=== PATIENT | female | born 1945 | race Asian ===

== ENCOUNTER 2016-10-27 23:20 | Inpatient (IN) | payer MEDICARE, OTHER ==
[~2016-10-27] VITALS: Ht 170.2 cm; Wt 101.5 kg
[~2016-10-27 23:20] MED LIST: [UNRECOGNIZED DRUG - CODE]; [UNRECOGNIZED DRUG - REMARK]; [UNRECOGNIZED DRUG - REMARK] PO; [UNRECOGNIZED DRUG - REMARK] PO
[2016-10-28] VITALS (20 sets, daily range): BP systolic 82–130; BP diastolic 42–66
[2016-10-28] MEDS ORDERED: SODIUM CHLORIDE FLUSH 10ML SYR IVF ONE
[2016-10-28] MEDS ORDERED: ONDANSETRON 2MG/ML, 2ML IVPush ONE
[2016-10-28] MEDS ORDERED: SODIUM CHLORIDE 0.9% 1,000ML IVBOLUS ONE
[2016-10-28 00:12] LABS: HEMOGLOBIN 4.5 g/dL (11.7-16.4)
[2016-10-28 00:13] LABS: HEMATOCRIT 14.7 % (34.6-47.8)
[2016-10-28 00:18] LABS: ASPARTATE AMINO TRANSFERASE 16 U/L (15-37); BLOOD UREA NITROGEN 23 mg/dL (7-18)
[2016-10-28] MEDS: SODIUM CHLORIDE 0.9% 1,000 ML IV SCH ×2 (00:30→05:37)
[2016-10-28] MEDS ORDERED: ACETAMINOPHEN 325 MG TABLET PO PRN (01:00)
[2016-10-28] MEDS ORDERED: ONDANSETRON 2MG/ML, 2ML IVPush PRN (01:00)
[2016-10-28] MEDS ORDERED: METOCLOPRAMIDE 5 MG/ML, 2ML IVPush PRN (01:00)
[2016-10-28] MEDS ORDERED: PHYTONADIONE 10 MG/ML, 1ML SQ ONE ×2 (01:00→03:00)
[2016-10-28] MEDS ORDERED: PROMETHAZINE 25 MG/ML, 1ML IM PRN (01:00)
[2016-10-28] MEDS ORDERED: WARF5TAB PO (01:08)
[2016-10-28] MEDS ORDERED: LOSA1TAB17 PO (01:08)
[2016-10-28 01:30] LABS: FERRITIN 17.2 ng/mL (8-252)
[2016-10-28] MEDS ORDERED: SODIUM CHLORIDE 0.9% 1,000 ML IV SCH (03:00)
[2016-10-28] MEDS ORDERED: PANTOPRAZOLE 80 MG in SODIUM CHLORIDE 0.9% 100 ML IV SCH (05:30)
[2016-10-28] MEDS ORDERED: PANTOPRAZOLE 80 MG in SODIUM CHLORIDE 0.9% 50 ML IV ONE (05:30)
[2016-10-28] MEDS ORDERED: FENTANYL PF 100 MCG/2ML ONE (11:41)
[2016-10-28] MEDS ORDERED: MIDAZOLAM 1 MG/ML, 5ML ONE (11:41)
[2016-10-28 11:58] LABS: WHITE BLOOD COUNT 6.7 x10^3/uL (3.4-10)
[2016-10-28 12:04] LABS: BLOOD UREA NITROGEN 28 mg/dL (7-18); HEMATOCRIT 15.7 % (34.6-47.8); HEMOGLOBIN 5.1 g/dL (11.7-16.4)
[2016-10-28 12:31] LABS: DIFF TOTAL CELLS COUNTED 100 CELL DIFF
[2016-10-28 12:38] LABS: VERIFY COUNTS? YES
[2016-10-28 12:58] LABS: ANISOCYTOSIS 1+; HYPOCHROMIA 2+
[2016-10-28 12:59] LABS: POIKILOCYTOSIS 1+
[2016-10-28] MEDS ORDERED: EPINEPHRINE SYRINGE 0.1 MG/ML, 10ML ONE (14:07)
[2016-10-28] MEDS: PANTOPRAZOLE 80 MG in SODIUM CHLORIDE 0.9% 100 ML IV SCH ×2 (14:36→22:59)
[2016-10-28 16:31] LABS: HEMATOCRIT 18.6 % (34.6-47.8); HEMOGLOBIN 6.1 g/dL (11.7-16.4)
[2016-10-28 23:23] LABS: HEMATOCRIT 25.7 % (34.6-47.8); HEMOGLOBIN 8.3 g/dL (11.7-16.4)
[2016-10-29] MEDS: SODIUM CHLORIDE 0.9% 1,000 ML IV SCH ×2 (01:23→14:47)
[2016-10-29 04:00] VITALS: BP 93/53
[2016-10-29 04:15] LABS: HEMATOCRIT 23.3 % (34.6-47.8); HEMOGLOBIN 7.9 g/dL (11.7-16.4); WHITE BLOOD COUNT 8.4 x10^3/uL (3.4-10)
[2016-10-29 04:27] LABS: ASPARTATE AMINO TRANSFERASE 28 U/L (15-37); BLOOD UREA NITROGEN 33 mg/dL (7-18)
[2016-10-29] MEDS: PANTOPRAZOLE 80 MG in SODIUM CHLORIDE 0.9% 100 ML IV SCH ×2 (07:56→20:43)
[2016-10-29 10:32] LABS: HEMATOCRIT 24.9 % (34.6-47.8); HEMOGLOBIN 8.2 g/dL (11.7-16.4)
[2016-10-29 14:43] LABS: HEMATOCRIT 23.1 % (34.6-47.8); HEMOGLOBIN 7.7 g/dL (11.7-16.4)
[2016-10-29] MEDS: D5%-0.45% NACL 1,000 ML IV SCH (18:02)
[2016-10-29 21:31] LABS: HEMATOCRIT 23.1 % (34.6-47.8); HEMOGLOBIN 7.6 g/dL (11.7-16.4)
[2016-10-30] MEDS: D5%-0.45% NACL 1,000 ML IV SCH ×2 (03:52→14:42)
[2016-10-30 04:33] LABS: HEMOGLOBIN 7.5 g/dL (11.7-16.4); WHITE BLOOD COUNT 7.1 x10^3/uL (3.4-10)
[2016-10-30 04:52] LABS: ASPARTATE AMINO TRANSFERASE 29 U/L (15-37); BLOOD UREA NITROGEN 33 mg/dL (7-18)
[2016-10-30 05:24] VITALS: BP 106/70
[2016-10-30] MEDS: PANTOPRAZOLE 80 MG in SODIUM CHLORIDE 0.9% 100 ML IV SCH ×2 (07:57→08:32)
[2016-10-30 14:09] LABS: HEMATOCRIT 25.6 % (34.6-47.8); HEMOGLOBIN 8.2 g/dL (11.7-16.4)
[2016-10-30] MEDS: PANTOPRAZOLE 40 MG IV IVPush SCH (14:41)
[2016-10-30 20:00] VITALS: BP 130/81
[2016-10-31] MEDS: PANTOPRAZOLE 40 MG IV IVPush SCH (01:47)
[2016-10-31] MEDS: D5%-0.45% NACL 1,000 ML IV SCH (01:47)
[2016-10-31 01:52] VITALS: BP 147/88
[2016-10-31 05:47] LABS: HEMATOCRIT 24.9 % (34.6-47.8); WHITE BLOOD COUNT 5.6 x10^3/uL (3.4-10)
[2016-10-31 06:10] LABS: ASPARTATE AMINO TRANSFERASE 26 U/L (15-37); BLOOD UREA NITROGEN 19 mg/dL (7-18)
[2016-10-31 07:31] VITALS: BP 153/87
[2016-10-31] MEDS ORDERED: OMEP40CA6 PO (11:40)
[2016-10-31 12:10] VITALS: BP 141/85
[2016-10-31] MEDS ORDERED: ONDANSETRON 2MG/ML, 2ML IVPush PRN (15:00)
[2016-10-31] MEDS ORDERED: PROMETHAZINE 25 MG/ML, 1ML IM PRN (15:00)
[2016-10-31] MEDS ORDERED: D5%-0.45% NACL 1,000 ML IV SCH (15:00)
[2016-10-31] MEDS ORDERED: ACETAMINOPHEN 325 MG TABLET PO PRN (15:00)
[2016-10-31] MEDS ORDERED: METOCLOPRAMIDE 5 MG/ML, 2ML IVPush PRN (15:00)
== END 2016-10-31 13:45 | disposition home or self-care (01) | DRG 377 ==
LOC: ED 10-28 00:29 → EDIP 10-28 00:44 → SUATTDRO 10-28 00:45 → CCU 10-28 01:57 → 4WST 10-30 20:04
PROVIDERS: ATTEND Family Medicine
PROC: 0T9B70Z Drainage of Bladder with Drainage Device, Via Natural or Artificial Opening (ICD-10-PCS; 2016-10-27)
PROC: 30233N1 Transfusion of Nonautologous Red Blood Cells into Peripheral Vein, Percutaneous Approach (ICD-10-PCS; 2016-10-28)
PROC: 30233K1 Transfusion of Nonautologous Frozen Plasma into Peripheral Vein, Percutaneous Approach (ICD-10-PCS; 2016-10-28)
PROC: 3E0G8GC Introduction of Other Therapeutic Substance into Upper GI, Via Natural or Artificial Opening Endoscopic (ICD-10-PCS; 2016-10-28)
PROC: 0W3P8ZZ Control Bleeding in Gastrointestinal Tract, Via Natural or Artificial Opening Endoscopic (ICD-10-PCS; 2016-10-28)
PROC: 0DB68ZX Excision of Stomach, Via Natural or Artificial Opening Endoscopic, Diagnostic (ICD-10-PCS; 2016-10-28)
PROC: 30233L1 Transfusion of Nonautologous Fresh Plasma into Peripheral Vein, Percutaneous Approach (ICD-10-PCS; principal; 2016-10-28 12:30)
DX: K26.4 Chronic or unspecified duodenal ulcer with hemorrhage (principal); E43 Unspecified severe protein-calorie malnutrition; N17.9 Acute kidney failure, unspecified; D68.59 Other primary thrombophilia; D68.32 Hemorrhagic disorder due to extrinsic circulating anticoagulants; I48.91 Unspecified atrial fibrillation; D62 Acute posthemorrhagic anemia; E78.5 Hyperlipidemia, unspecified; I10 Essential (primary) hypertension; T45.515A Adverse effect of anticoagulants, initial encounter; K29.50 Unspecified chronic gastritis without bleeding; Z79.01 Long term (current) use of anticoagulants; Y92.89 Other specified places as the place of occurrence of the external cause; Z79.82 Long term (current) use of aspirin; Z79.899 Other long term (current) drug therapy; Z68.35 Body mass index [BMI] 35.0-35.9, adult
CPT/HCPCS: 36415; 80048; 80053; 81001; 82728; 83540; 83550; 83605; 83690; 83735; 85014; 85018; 85025; 85610; 85730; 86850; 86900; 86923; 87081; 87086; 88305; 93005; J2250; J2405; J3010; J3430; C9113; J7030; P9016; P9017

== ENCOUNTER 2017-02-04 16:55 | Inpatient (IN) | payer MEDICARE ==
[~2017-02-04] VITALS: Ht 172.7 cm; Wt 86.4 kg
[~2017-02-04 16:55] MED LIST changes: +LOSA1TAB22 PO; +OMEP40CA6 PO; +WARF5TAB PO
[2017-02-04 18:03] LABS: HEMATOCRIT 35.7 % (34.6-47.8); HEMOGLOBIN 11.1 g/dL (11.7-16.4); WHITE BLOOD COUNT 5.3 x10^3/uL (3.4-10)
[2017-02-04 18:11] LABS: BLOOD UREA NITROGEN 22 mg/dL (7-18)
[2017-02-04] MEDS ORDERED: DILTIAZEM 5 MG/ML, 5ML ONE ×2 (18:14→18:17)
[2017-02-04 18:15] LABS: IS PT STATUS REG ER OR PRE ER? YES
[2017-02-04] MEDS ORDERED: ASPIRIN 81 MG TABLET CHEW ONE (18:15)
[2017-02-04] MEDS ORDERED: SODIUM CHLORIDE FLUSH 10ML SYR IVF ONE (18:30)
[2017-02-04 18:42] LABS: DIFF TOTAL CELLS COUNTED 100 CELL DIFF
[2017-02-04 18:47] LABS: ANISOCYTOSIS 2+; HYPOCHROMIA 1+; MICROCYTOSIS 2+; POLYCHROMASIA 1+
[2017-02-04 18:48] LABS: OVALOCYTES 1+; TARGET CELLS 1+
[2017-02-04 18:49] LABS: LARGE PLATELETS 1+
[2017-02-04 18:51] LABS: VERIFY COUNTS? YES
[2017-02-04] MEDS ORDERED: ASPIRIN 81 MG TABLET CHEW PO ONE (19:00)
[2017-02-04] MEDS ORDERED: DILTIAZEM 5 MG/ML, 5ML IV ONE (19:00)
[2017-02-04] MEDS ORDERED: OMNIPAQUE 350 MG/ML, 100ML BOTTLE ONE (19:49)
[2017-02-04] MEDS ORDERED: FUROSEMIDE 20 MG/2 ML IV ONE (20:30)
[2017-02-04] MEDS ORDERED: ONDANSETRON 2MG/ML, 2ML IV PRN (21:00)
[2017-02-04] MEDS ORDERED: ACETAMINOPHEN 650 MG/20.3 ML UDC PO PRN (21:00)
[2017-02-04] MEDS ORDERED: NITROGLYCERIN 0.4 MG BOTTLE (25 TABS) SL PRN (21:00)
[2017-02-04] MEDS ORDERED: Enoxaparin 1 mg/kg protocol SQ SCH (21:00)
[2017-02-04] MEDS ORDERED: FURO40TA6 PO (21:08)
[2017-02-04] MEDS ORDERED: METO25TA91 PO (21:08)
[2017-02-04 21:26] LABS: IS PT STATUS REG ER OR PRE ER? YES
[2017-02-04 22:20] VITALS: BP 134/84
[2017-02-04] MEDS: FUROSEMIDE 20 MG/2 ML IVPush SCH ×2 (22:50→22:58)
[2017-02-04] MEDS: SODIUM CHLORIDE FLUSH 10ML SYR IVF SCH (22:57)
[2017-02-04] MEDS: OMEPRAZOLE 20 MG CAPSULE.DR PO SCH (22:57)
[2017-02-04] MEDS: METOPROLOL TARTRATE 25 MG TABLET PO SCH (22:58)
[2017-02-04] MEDS ORDERED: ENOXAPARIN 100 MG/ML SQ SCH (23:00)
[2017-02-04] MEDS ORDERED: WARFARIN 5 MG TABLET PO-COUM ONE (23:30)
[2017-02-05 02:00] VITALS: BP 126/87
[2017-02-05 03:33] LABS: IS PT STATUS REG ER OR PRE ER? NO
[2017-02-05] MEDS: METOPROLOL TARTRATE 25 MG TABLET PO SCH ×3 (05:11→17:32)
[2017-02-05 07:00] VITALS: BP 127/84
[2017-02-05] MEDS: OMEPRAZOLE 20 MG CAPSULE.DR PO SCH (08:18)
[2017-02-05] MEDS: SPIRONOLACTONE 25 MG TABLET PO SCH (08:18)
[2017-02-05] MEDS: SODIUM CHLORIDE FLUSH 10ML SYR IVF SCH ×2 (08:19→20:32)
[2017-02-05] MEDS: FUROSEMIDE 20 MG/2 ML IVPush SCH ×2 (08:19→20:31)
[2017-02-05] MEDS ORDERED: LOSARTAN 50MG TABLET PO SCH (09:00)
[2017-02-05 09:15] LABS: IS PT STATUS REG ER OR PRE ER? NO
[2017-02-05 15:39] VITALS: BP 100/64
[2017-02-05 17:59] LABS: IS PT STATUS REG ER OR PRE ER? NO
[2017-02-05 19:59] VITALS: BP 107/74
[2017-02-06] MEDS: METOPROLOL TARTRATE 25 MG TABLET PO SCH ×3 (00:38→17:00)
[2017-02-06 00:40] VITALS: BP 104/70
[2017-02-06 00:42] LABS: IS PT STATUS REG ER OR PRE ER? NO
[2017-02-06 04:55] LABS: TOTAL IRON BINDING CAPACITY 452 mcg/dL (250-450)
[2017-02-06 05:21] LABS: FERRITIN 38.3 ng/mL (8-252)
[2017-02-06 08:00] VITALS: BP 95/67
[2017-02-06] MEDS: HYDROCHLOROTHIAZIDE 25 MG TABLET PO SCH (08:57)
[2017-02-06] MEDS: FUROSEMIDE 20 MG/2 ML IVPush SCH ×2 (08:57→19:32)
[2017-02-06] MEDS: SPIRONOLACTONE 25 MG TABLET PO SCH (08:57)
[2017-02-06] MEDS: SODIUM CHLORIDE FLUSH 10ML SYR IVF SCH ×2 (09:00→19:33)
[2017-02-06 09:01] VITALS: BP 107/72
[2017-02-06 09:15] LABS: HEMATOCRIT 31.6 % (34.6-47.8); WHITE BLOOD COUNT 3.9 x10^3/uL (3.4-10)
[2017-02-06 09:24] LABS: BLOOD UREA NITROGEN 27 mg/dL (7-18)
[2017-02-06 12:21] VITALS: BP 105/71
[2017-02-06] MEDS: LOSARTAN 50MG TABLET PO SCH (12:22)
[2017-02-06 16:58] VITALS: BP 104/71
[2017-02-06 18:53] VITALS: BP 106/74
[2017-02-07 01:10] VITALS: BP 105/63
[2017-02-07] MEDS: METOPROLOL TARTRATE 25 MG TABLET PO SCH ×4 (01:48→19:52)
[2017-02-07 04:58] LABS: BLOOD UREA NITROGEN 30 mg/dL (7-18); HEMATOCRIT 33.9 % (34.6-47.8); HEMOGLOBIN 10.5 g/dL (11.7-16.4); WHITE BLOOD COUNT 4.9 x10^3/uL (3.4-10)
[2017-02-07 06:02] LABS: DIFF TOTAL CELLS COUNTED 100 CELL DIFF
[2017-02-07 06:08] LABS: ANISOCYTOSIS 2+; HYPOCHROMIA 1+; MICROCYTOSIS 2+; OVALOCYTES 1+; POLYCHROMASIA 1+; TARGET CELLS 1+; VERIFY COUNTS? YES
[2017-02-07 07:48] VITALS: BP 108/76
[2017-02-07] MEDS: HYDROCHLOROTHIAZIDE 25 MG TABLET PO SCH (08:06)
[2017-02-07] MEDS: SODIUM CHLORIDE FLUSH 10ML SYR IVF SCH ×2 (08:06→19:52)
[2017-02-07] MEDS: FUROSEMIDE 20 MG/2 ML IVPush SCH (08:06)
[2017-02-07] MEDS: LOSARTAN 50MG TABLET PO SCH (09:00)
[2017-02-07] MEDS: FUROSEMIDE 40 MG/4 ML IVPush SCH ×2 (15:13→19:52)
[2017-02-07] MEDS: SPIRONOLACTONE 25 MG TABLET PO SCH (15:13)
[2017-02-07] MEDS: POTASSIUM CHLORIDE 20 MEQ TAB.ER.PRT PO SCH (15:14)
[2017-02-07 15:34] VITALS: BP 100/69
[2017-02-07 16:19] VITALS: BP 90/59
[2017-02-07 18:37] VITALS: BP 101/70
[2017-02-07] MEDS ORDERED: IRON SUCROSE COMPLEX 100MG/5ML IV ONE (19:00)
[2017-02-08 01:19] VITALS: BP 109/77
[2017-02-08 05:11] LABS: BLOOD UREA NITROGEN 30 mg/dL (7-18); HEMATOCRIT 34.6 % (34.6-47.8); HEMOGLOBIN 10.8 g/dL (11.7-16.4); WHITE BLOOD COUNT 4.1 x10^3/uL (3.4-10)
[2017-02-08 07:31] VITALS: BP 119/80
[2017-02-08] MEDS: LOSARTAN 50MG TABLET PO SCH (08:30)
[2017-02-08] MEDS: FUROSEMIDE 40 MG/4 ML IVPush SCH (08:31)
[2017-02-08] MEDS: POTASSIUM CHLORIDE 20 MEQ TAB.ER.PRT PO SCH (08:31)
[2017-02-08] MEDS: SODIUM CHLORIDE FLUSH 10ML SYR IVF SCH ×2 (08:31→21:54)
[2017-02-08] MEDS: METOPROLOL TARTRATE 25 MG TABLET PO SCH ×3 (08:32→21:54)
[2017-02-08] MEDS: HYDROCHLOROTHIAZIDE 25 MG TABLET PO SCH (08:35)
[2017-02-08] MEDS ORDERED: IRON SUCROSE COMPLEX 100MG/5ML IV ONE (09:30)
[2017-02-08] MEDS: SPIRONOLACTONE 25 MG TABLET PO SCH (12:27)
[2017-02-08 14:40] VITALS: BP 111/77
[2017-02-08] MEDS: FUROSEMIDE 40 MG TABLET PO SCH (16:48)
[2017-02-08 19:19] VITALS: BP 117/80
[2017-02-08 21:50] VITALS: BP 110/71
[2017-02-09 03:23] VITALS: BP 106/73
[2017-02-09] MEDS ORDERED: IRON SUCROSE COMPLEX 100MG/5ML IV ONE (06:00)
[2017-02-09] MEDS: POTASSIUM CHLORIDE 20 MEQ TAB.ER.PRT PO SCH (07:47)
[2017-02-09 07:48] LABS: HEMATOCRIT 36.9 % (34.6-47.8); HEMOGLOBIN 11.5 g/dL (11.7-16.4); WHITE BLOOD COUNT 6.8 x10^3/uL (3.4-10)
[2017-02-09] MEDS: HYDROCHLOROTHIAZIDE 25 MG TABLET PO SCH (07:48)
[2017-02-09] MEDS: SODIUM CHLORIDE FLUSH 10ML SYR IVF SCH (07:49)
[2017-02-09] MEDS: LOSARTAN 50MG TABLET PO SCH (07:49)
[2017-02-09] MEDS: FUROSEMIDE 40 MG TABLET PO SCH (07:49)
[2017-02-09 07:50] VITALS: BP 95/64
[2017-02-09] MEDS: METOPROLOL TARTRATE 25 MG TABLET PO SCH (07:50)
[2017-02-09 07:58] LABS: ASPARTATE AMINO TRANSFERASE 54 U/L (15-37); BLOOD UREA NITROGEN 28 mg/dL (7-18)
[2017-02-09] MEDS ORDERED: METOPROLOL TARTRATE 25 MG TABLET PO SCH (08:30)
[2017-02-09] MEDS ORDERED: SPIRONOLACTONE 25 MG TABLET PO SCH (09:00)
[2017-02-09] MEDS ORDERED: LOSARTAN 50MG TABLET PO SCH (09:00)
[2017-02-09] MEDS ORDERED: LOSA25TA2 PO (12:00)
[2017-02-09] MEDS ORDERED: POTA20TA6 PO (12:00)
[2017-02-09] MEDS ORDERED: METO25TA35 PO (12:00)
[2017-02-09] MEDS ORDERED: SPIR25TA PO (12:00)
[2017-02-09] MEDS ORDERED: FURO40TA6 PO (12:00)
[2017-02-10] MEDS ORDERED: LOSARTAN 25MG TABLET PO SCH (09:00)
== END 2017-02-09 15:15 | disposition home or self-care (01) | DRG 291 ==
LOC: ED 19:19 → EDIP 20:42 → 5SO 22:04 → DCLOUNGE 02-09 14:40
PROVIDERS: ADMIT Family Medicine; ATTEND Family Medicine
DX: I11.0 Hypertensive heart disease with heart failure (principal); J96.01 Acute respiratory failure with hypoxia; E87.2 Acidosis; D68.69 Other thrombophilia; I31.3 Pericardial effusion (noninflammatory); I50.41 Acute combined systolic (congestive) and diastolic (congestive) heart failure; I42.9 Cardiomyopathy, unspecified; D50.9 Iron deficiency anemia, unspecified; E78.5 Hyperlipidemia, unspecified; I48.2 Chronic atrial fibrillation; M79.89 Other specified soft tissue disorders; R79.89 Other specified abnormal findings of blood chemistry; Z79.01 Long term (current) use of anticoagulants; Z79.82 Long term (current) use of aspirin; Z87.11 Personal history of peptic ulcer disease; Z87.891 Personal history of nicotine dependence
CPT/HCPCS: 36415; 71020; 71275; 80048; 80053; 80061; 82040; 82607; 82728; 82746; 83540; 83550; 83605; 83735; 83880; 84439; 84443; 84484; 85025; 85610; 85730; 87040; 93005; 93306; 96374; J1756; J1940; Q9967

== ENCOUNTER 2017-04-11 03:11 | Emergency (ER) | payer MEDICARE ==
[~2017-04-11] VITALS: Ht 172.7 cm; Wt 85.3 kg
[~2017-04-11 03:11] MED LIST changes: +FURO40TA6 PO; +LOSA25TA2 PO; +METO25TA35 PO; +METO25TA91 PO; +POTA20TA6 PO; +SPIR25TA PO
[2017-04-11] MEDS ORDERED: OXYMETAZOLINE NASAL SPRAY 0.05%, 15ML ONE (03:18)
[2017-04-11] MEDS ORDERED: OXYMETAZOLINE NASAL SPRAY 0.05%, 15ML NAS ONE (04:00)
[2017-04-11 04:48] VITALS: BP 134/79
== END 2017-04-11 04:51 | disposition home or self-care (01) ==
LOC: ED 03:31
DX: R04.0 Epistaxis (principal); E78.5 Hyperlipidemia, unspecified; I48.91 Unspecified atrial fibrillation; I11.0 Hypertensive heart disease with heart failure; I50.9 Heart failure, unspecified
CPT/HCPCS: 30905; 99284

== ENCOUNTER 2019-06-08 16:46 | Emergency (ER) | payer MEDICARE ==
[~2019-06-08] VITALS: Ht 172.7 cm; Wt 105.0 kg
[~2019-06-08 16:46] MED LIST changes: +OMEP40CA42 PO; -OMEP40CA6 PO
[2019-06-08 17:19] VITALS: BP 124/88
== END 2019-06-08 18:24 | disposition home or self-care (01) ==
LOC: ED 17:06
DX: J20.8 Acute bronchitis due to other specified organisms (principal); I48.91 Unspecified atrial fibrillation; I45.10 Unspecified right bundle-branch block; I21.9 Acute myocardial infarction, unspecified
CPT/HCPCS: 71045; 93005; 99283

== ENCOUNTER 2019-06-21 09:39 | Emergency (ER) | payer MEDICARE ==
[~2019-06-21] VITALS: Ht 172.7 cm; Wt 100.0 kg
[2019-06-21 09:49] VITALS: BP 108/59
--- NOTE | 2019-06-21 10:50 | NUR ---
SISTER HALEY VISITED PT AND GAVE DR. VALLE HX OF EVENTS LEADING UP TO PT'S VISIT TODAY. PLAN PER DR. VALLE IS TO HAVE PT EVALUATED BY [employer]. HALEY CAN BE REACHED AT [phone]. PT AWARE OF NEED FOR [facility]. PT REPORTS SHE IS NOT GETTING ALONG WITH HER FAMILY AND THEY DO NOT LIKE WHEN SHE WAKES UP IN THE MIDDLE OF THE NIGHT TO PRAY. PT NOT ON LEGAL HOLD PER DR. VALLE AT THIS TIME. Addendum: 06/21/19 at 1306 by [email or web address] HALLIE EXTR[employer]ION SUPERVISOR AT BEDSIDE FOR EVALUATION
--- NOTE | 2019-06-21 11:08 | NUR ---
TASK RN: PT CHANGED TO ROOM 11. RN AMBULATED WITH PT TO ROOM. STEADY GAIT.
[2019-06-21 11:24] LABS: BASOPHILS % (AUTO) 1 % (0-1); EOSINOPHILS # (AUTO) 0.19 x10^3/uL (0-0.4); EOSINOPHILS % (AUTO) 2 % (1-7); LYMPHOCYTES % (AUTO) 12 % (22-44); MD NO; MEAN CORPUSCULAR HEMOGLOBIN 30.6 pg (27.0-34.8); MEAN CORPUSCULAR VOLUME 92.7 fL (80-100); MEAN PLATELET VOLUME 8.5 fL (7.4-10.4); MONOCYTES # (AUTO) 0.59 x10^3/uL (0.2-0.8); MONOCYTES % (AUTO) 6 % (2-9); NEUTROPHILS # (AUTO) 8.33 x10^3/uL (1.8-6.8); NEUTROPHILS % (AUTO) 80 % (42-75); PLATELET COUNT 205 x10^3/uL (130-400); RED CELL DISTRIBUTION WIDTH 14.9 % (9.6-15.2)
[2019-06-21 11:32] LABS: ALANINE AMINOTRANSFERASE 40 U/L (12-78); ALBUMIN 3.5 g/dL (3.4-5.0); ANION GAP 7 mmol/L (5-15); CALCIUM 9.6 mg/dL (8.5-10.1); CHLORIDE 104 mmol/L (98-107); CREATININE 1.74 mg/dL (0.55-1.02)
[2019-06-21 11:33] LABS: SALICYLATE LEVEL < 1.7 mg/dL (2.8-20.0)
[2019-06-21 11:34] LABS: ALKALINE PHOSPHATASE 151 U/L (45-117); BILIRUBIN,TOTAL 0.9 mg/dL (0.2-1.0); TOTAL PROTEIN 7.8 g/dL (6.4-8.2)
--- NOTE | 2019-06-21 11:56 | NUR ---
PT REFUSED EKG STATING, "I DON'T HAVE A MEDICAL PROBLEM."
[2019-06-21 12:54] LABS: AMPHETAMINE SCREEN, URINE Negative (Negative); BARBITURATE SCREEN, URINE Negative (Negative); BENZODIAZEPINE SCREEN, URINE Negative (Negative); CANNABINOID SCREEN, URINE Negative (Negative); COCAINE SCREEN, URINE Negative (Negative); METHADONE SCREEN, URINE Negative (Negative); OPIATE SCREEN, URINE Negative (Negative)
--- NOTE | 2019-06-21 13:01 | NUR ---
REPORT RECIEVED FROM AJIT PEREZ
[2019-06-21] MEDS ORDERED: QUETIAPINE 25MG TABLET ONE (13:47)
[2019-06-21] MEDS ORDERED: QUETIAPINE 25MG TABLET PO SCH (14:00)
--- NOTE | 2019-06-21 14:28 | NUR ---
PLACED PT BELONGINGS IN SECURITY LOCKER PT HAS A BLACK CANE, 2 WHITE PT BAGS, AND 1 PURPLE BAG. THERE IS A CELL PHONE WITH A VASC TECH INSIDE THE PURPLE BAG
--- NOTE | 2019-06-21 14:31 | NUR ---
Pt report received from Vidhya PEREZ, pt care assumed by michelle PEREZ at this time. Pt resting in hospital bed, given water for comfort, denies additional needs, NAD, eyes open watching TV, even and unlabored respirations, WCTM.
--- NOTE | 2019-06-21 15:22 | NUR ---
BRIGIDA RN: PACKET FAXED TO [facility]
--- NOTE | 2019-06-21 15:47 | NUR ---
Pt report called to Keri PEREZ, pt to be transferred to U. pt currently in hospital bed, NAD, denies additional needs at this time.
[2019-06-22] MEDS ORDERED: LOSA25TA12 PO (11:55)
[2019-06-22] MEDS ORDERED: METO25TA4 PO (11:55)
[2019-06-22] MEDS ORDERED: DIGO125T85 PO (11:55)
[2019-06-22] MEDS ORDERED: BENZ100C PO (11:55)
[2019-06-22] MEDS ORDERED: ALBU8.5H8 PO (11:55)
[2019-06-22] MEDS ORDERED: SPIR25TA5 PO (11:55)
== END 2019-06-21 16:18 | disposition other institution (70) ==
LOC: ED 10:42
DX: F30.9 Manic episode, unspecified (principal); F23 Brief psychotic disorder; E11.9 Type 2 diabetes mellitus without complications; E78.5 Hyperlipidemia, unspecified; I11.0 Hypertensive heart disease with heart failure; I50.9 Heart failure, unspecified
CPT/HCPCS: 36415; 80053; 80307; 85025; 99284

== ENCOUNTER 2019-06-21 15:41 | Inpatient (IN) | payer MEDICARE ==
[~2019-06-21] VITALS: Ht 172.7 cm; Wt 94.0 kg
[2019-06-21] MEDS ORDERED: ONDANSETRON ODT 4 MG PO PRN (17:00)
[2019-06-21] MEDS ORDERED: DOCUSATE 100 MG CAPSULE PO PRN (17:00)
[2019-06-21] MEDS ORDERED: POLYETHYLENE GLYCOL 17 GM PACKET PO PRN (17:00)
[2019-06-21] MEDS ORDERED: BISACODYL 10 MG SUPP PR PRN (17:00)
[2019-06-21] MEDS ORDERED: PLEASE ENTER HEIGHT AND WEIGHT MC SCH (17:30)
[2019-06-21 20:00] VITALS: BP_SYST 112; BP_SYST 93; BP_DIAS 70; BP_DIAS 74
[2019-06-21] MEDS: QUETIAPINE 25MG TABLET PO PRN (20:56)
[2019-06-22] MEDS: ACETAMINOPHEN 325 MG TABLET PO PRN (02:06)
[2019-06-22 07:15] LABS: CHOL/HDL RATIO 2.3; FREE T4 (FREE THYROXINE) 1.29 ng/dL (0.76-1.46)
[2019-06-22 07:25] VITALS: BP 97/63
[2019-06-22] MEDS: QUETIAPINE 25MG TABLET PO PRN ×2 (08:32→20:38)
[2019-06-22 08:53] LABS: MICROSCOPIC AUTO
[2019-06-22 08:55] LABS: CULTURE INDICATED? YES
--- NOTE | 2019-06-22 11:15 | NUR ---
REC: Home with family supervision Addendum: 06/22/19 at 1115 by Loreto BARBER Amended: Links added.
[2019-06-22] MEDS ORDERED: METO25TA4 PO (11:55)
[2019-06-22] MEDS ORDERED: DIGO125T85 PO (11:55)
[2019-06-22] MEDS ORDERED: LOSA25TA12 PO (11:55)
[2019-06-22] MEDS ORDERED: BENZ100C PO (11:55)
[2019-06-22] MEDS ORDERED: ALBU8.5H8 PO (11:55)
[2019-06-22] MEDS ORDERED: SPIR25TA5 PO (11:55)
[2019-06-22] MEDS: DIVALPROEX 125 MG CAP.SPRINK PO SCH ×2 (12:06→20:26)
[2019-06-22 19:15] VITALS: BP 120/81
[2019-06-22] MEDS: METOPROLOL TARTRATE 25 MG TAB PO SCH (20:26)
[2019-06-23] MEDS: ACETAMINOPHEN 325 MG TABLET PO PRN ×3 (04:40→20:16)
[2019-06-23 06:24] VITALS: BP 123/66
[2019-06-23 09:40] VITALS: BP 115/75
[2019-06-23] MEDS: DIGOXIN 0.125 MG TABLET PO SCH (09:41)
[2019-06-23] MEDS: DIVALPROEX 125 MG CAP.SPRINK PO SCH ×2 (09:41→20:17)
[2019-06-23] MEDS: LOSARTAN 25MG TABLET PO SCH (09:41)
[2019-06-23] MEDS: METOPROLOL TARTRATE 25 MG TAB PO SCH ×2 (09:41→20:25)
[2019-06-23] MEDS: QUETIAPINE 25MG TABLET PO SCH (20:18)
[2019-06-23 20:30] VITALS: BP 111/73
[2019-06-24] MEDS: ACETAMINOPHEN 325 MG TABLET PO PRN ×2 (04:57→16:24)
[2019-06-24 07:18] VITALS: BP 139/83
[2019-06-24] MEDS: LOSARTAN 25MG TABLET PO SCH (07:56)
[2019-06-24] MEDS: DIGOXIN 0.125 MG TABLET PO SCH (07:56)
[2019-06-24] MEDS: DIVALPROEX 125 MG CAP.SPRINK PO SCH ×2 (07:57→20:09)
[2019-06-24] MEDS: METOPROLOL TARTRATE 25 MG TAB PO SCH ×2 (07:57→20:12)
[2019-06-24] MEDS: QUETIAPINE 25MG TABLET PO SCH ×2 (07:58→20:09)
[2019-06-24] MEDS: QUETIAPINE 25MG TABLET PO PRN (14:54)
[2019-06-24 19:15] VITALS: BP 109/75
[2019-06-25 07:29] VITALS: BP 125/92
[2019-06-25] MEDS: LOSARTAN 25MG TABLET PO SCH (08:56)
[2019-06-25] MEDS: DIVALPROEX 125 MG CAP.SPRINK PO SCH (08:56)
[2019-06-25] MEDS: METOPROLOL TARTRATE 25 MG TAB PO SCH (08:57)
[2019-06-25] MEDS: DIGOXIN 0.125 MG TABLET PO SCH (08:57)
[2019-06-25] MEDS: QUETIAPINE 25MG TABLET PO SCH (08:58)
[2019-06-25] MEDS: ACETAMINOPHEN 325 MG TABLET PO PRN (08:59)
[2019-06-25] MEDS: QUETIAPINE 25MG TABLET PO PRN (13:12)
[2019-06-25] MEDS ORDERED: QUET25TA7 PO (13:48)
[2019-06-25] MEDS ORDERED: DIVA125C2 PO (13:48)
== END 2019-06-25 13:30 | DRG 885 ==
LOC: 3E 16:17
PROVIDERS: ADMIT Psychiatry & Neurology Psychosomatic Medicine; ATTEND Psychiatry & Neurology Psychosomatic Medicine
DX: F31.10 Bipolar disorder, current episode manic without psychotic features, unspecified (principal); E78.5 Hyperlipidemia, unspecified; I48.91 Unspecified atrial fibrillation; I11.0 Hypertensive heart disease with heart failure; I50.9 Heart failure, unspecified; Z79.899 Other long term (current) drug therapy
CPT/HCPCS: 36415; 71045; 80053; 80061; 80162; 80307; 81001; 82140; 84439; 84443; 87086; 87147; 93005; 99284; 92522-GN